=== PATIENT | male | born 1970 | race Two or more races ===

== ENCOUNTER 2016-08-27 02:30 | Emergency (ER) | payer OTHER ==
[~2016-08-27] VITALS: Ht 152.4 cm; Wt 64.9 kg
[2016-08-27 04:15] VITALS: BP 155/88
== END 2016-08-27 06:11 | disposition home or self-care (01) ==
LOC: ER 02:52
DX: S43.401A Unspecified sprain of right shoulder joint, initial encounter (principal); X58.XXXA Exposure to other specified factors, initial encounter; Y93.89 Activity, other specified; Y99.8 Other external cause status; Y92.89 Other specified places as the place of occurrence of the external cause
CPT/HCPCS: 73030